=== PATIENT | female | born 1950 | race Hispanic/Latino ===

== ENCOUNTER 2019-03-13 08:57 | Day surgery (SDC) | payer MEDICARE ==
[~2019-03-13] VITALS: Ht 157.5 cm; Wt 61.2 kg
[2019-03-13] VITALS (7 sets, daily range): BP systolic 97–131; BP diastolic 31–52
[~2019-03-13 08:57] MED LIST: ASPI-555 PO; CALC-1038 PO; KRIL1CAP19 PO; LOSA100T58 PO; ROSU5TAB12 PO; SODIUM CHLORIDE 0.9% 1000ML 1,000 ML IV ONE; TRAM50TA4 PO; VIT D PO; ZOLP10TA2 PO; [UNRECOGNIZED DRUG - CODE] PO
[2019-03-13] MEDS ORDERED: PROPOFOL 10 MG/ML 20ML VIAL IV ONE (11:20)
== END 2019-03-13 12:20 | disposition home or self-care (01) ==
LOC: ENDO 08:57 → DAH 08:57 → ENDO 12:20
PROVIDERS: ATTEND Internal Medicine
DX: K29.50 Unspecified chronic gastritis without bleeding (principal); K57.30 Diverticulosis of large intestine without perforation or abscess without bleeding; K64.0 First degree hemorrhoids; K44.9 Diaphragmatic hernia without obstruction or gangrene; K22.8 Other specified diseases of esophagus; K31.89 Other diseases of stomach and duodenum; R12 Heartburn; K59.04 Chronic idiopathic constipation; Z79.82 Long term (current) use of aspirin; E78.5 Hyperlipidemia, unspecified; I10 Essential (primary) hypertension; I25.10 Atherosclerotic heart disease of native coronary artery without angina pectoris; Z79.899 Other long term (current) drug therapy
CPT/HCPCS: 43239; 45378; 88305 ×2; 88342; A4606; J2704; J7030